=== PATIENT | male | born 1950 | race Caucasian/White ===

== ENCOUNTER 2018-04-22 05:12 | Emergency (ER) | payer MEDICARE, OTHER ==
[~2018-04-22] VITALS: Ht 188 cm; Wt 127.0 kg
[~2018-04-22 05:12] MED LIST: ALLO300T PO; CYCL10TA2 PO; HYDR-2765 PO; INDO50CA5 PO
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
[2018-04-22] MEDS ORDERED: HYDROcodone/APAP 5/325MG 1 TAB TABLET PO ONE (06:00)
[2018-04-22] MEDS ORDERED: IPRATRPIUM/ALBUTEROL 0.5/2.5MG 3 ML NEBU. NEB ONE (06:00)
--- NOTE | 2018-04-22 06:15 | RAD ---
Left lower extremity venous Doppler dated 04/22/2018. No comparison available. CLINICAL INDICATION: Left lower extremity pain and swelling. FINDINGS: Grayscale, color-flow and spectral waveform analysis performed to include the deep venous system of the left lower extremity. Normal compressibility, phasicity and augmentation of flow throughout. No filling defects are seen. IMPRESSION: No evidence of left lower extremity deep vein thrombosis. Electronically signed by: George Oliveira MD (04/22/2018 6:12 AM) [facility]
[2018-04-22 06:18] LABS: BASO # 0.1 x10^3/uL (0.0-0.2); BASO % 1 % (0-3); EOS # 0.2 x10^3/uL (0.0-0.7); EOS % 3 % (0-3); HEMATOCRIT 44.8 % (39.0-53.0); LYMPH # 1.6 x10^3/uL (1.0-4.8); LYMPH % 27 % (24-48); MEAN CORPUSCULAR HEMOGLOBIN 31 pg (25-35); MEAN CORPUSCULAR HGB CONC 34 g/dL (31-37); MEAN CORPUSCULAR VOLUME 93 fL (79-100); MONO # 0.5 x10^3/uL (0.0-1.1); MONO % 9 % (0-9); NEUT # 3.5 x10^3uL (1.8-7.7); NEUT % 60 % (31-73); PLATELET COUNT 223 x10^3/uL (140-400); RED BLOOD COUNT 4.82 x10^6/uL (4.30-5.70); RED CELL DISTRIBUTION WIDTH 15.9 % (11.5-14.5); WHITE BLOOD COUNT 5.8 x10^3/uL (4.0-11.0)
[2018-04-22 06:25] LABS: CALCIUM 8.4 mg/dL (8.5-10.1); GFR 74.8; POTASSIUM 4.3 mmol/L (3.5-5.1)
[2018-04-22 06:27] LABS: PROTHROMBIN TIME PATIENT 13.7 SEC (11.7-14.0)
[2018-04-22 06:30] LABS: ALBUMIN 3.2 g/dL (3.4-5.0); ALBUMIN/GLOBULIN RATIO 0.9 (1.0-1.7); TOTAL BILIRUBIN 0.4 mg/dL (0.2-1.0); TOTAL PROTEIN 6.7 g/dL (6.4-8.2)
--- NOTE | 2018-04-22 06:38 | RAD ---
Single view chest dated 04/22/2018. Comparison made to 11/30/2014. CLINICAL INDICATION: Shortness of breath. FINDINGS: Single upright portable exam performed. Heart and mediastinal contours are stable. Coarsened interstitial markings throughout both lungs, unchanged. The lungs are somewhat hyperinflated. There is some patchy and linear opacities at both lung bases. IMPRESSION: 1. Patchy and linear opacities at both lung bases, likely atelectasis. 2. Findings consistent with COPD. Electronically signed by: George Oliveira MD (04/22/2018 6:35 AM) [facility]
--- NOTE | 2018-04-22 06:39 | RAD ---
Three-view left knee dated 04/22/2018. No comparison available. CLINICAL INDICATION: Pain and swelling. FINDINGS: 3 views left knee show normal bony alignment. No displaced fracture. Mild to moderate tricompartmental hypertrophic change with asymmetric medial joint space narrowing. Small joint effusion. No loose body. IMPRESSION: 1. No acute radiographic abnormality. 2. 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 3. Small joint effusion. Electronically signed by: George Oliveira MD (04/22/2018 6:36 AM) [facility] [place]
[2018-04-22] MEDS ORDERED: ALBUTEROL SULFATE 2.5 MG/3 ML NEBU. NEB ONE (07:15)
[2018-04-22] MEDS ORDERED: predniSONE 10 MG TABLET PO ONE ×2 (07:30)
--- NOTE | 2018-04-22 08:25 | EKG ---
[facility] [address] [place] [address] Test Date: 2018-04-22 Test Time: 06:40:21 Pat Name: JOSÉ MIGUEL JIMENEZ Department: Room: Gender: M [employer] Person: : [id number] Requested By: SEBASTIAN GARCIA Order Number: [id number] Reading MD: Duane Stephens MD Measurements Intervals [place] Rate: 72 P: -90 TN: 146 QRS: 79 QRSD: 92 T: 66 QT: 390 QTc: 429 Interpretive Statements SR NON-SPECIFIC ST/T CHANGES Electronically Signed On 05-02-2018 21:58:15 CDT by Duane Stephens MD
[2018-04-22 08:30] VITALS: BP 119/56
[2018-04-22] MEDS ORDERED: MELO7.5T29 PO (08:39)
[2018-04-22] MEDS ORDERED: AZIT250T6 PO (08:39)
[2018-04-22] MEDS ORDERED: PRED50TA PO (08:39)
== END 2018-04-22 08:56 | disposition left against medical advice (07) ==
LOC: ER 05:12
DX: M25.562 Pain in left knee (principal); J44.1 Chronic obstructive pulmonary disease with (acute) exacerbation; F17.200 Nicotine dependence, unspecified, uncomplicated; I10 Essential (primary) hypertension; G89.29 Other chronic pain
CPT/HCPCS: 36415; 71045; 73562; 80053; 83880; 84484; 85025; 85379; 85610; 93005; 93971; 94640; 99284; J7613; J7620

== ENCOUNTER 2019-01-27 07:47 | Emergency (ER) | payer MEDICARE, OTHER ==
[~2019-01-27] VITALS: Ht 188 cm; Wt 128.4 kg
[~2019-01-27 07:47] MED LIST changes: +AZIT250T6 PO; +INDO50CA15 PO; -INDO50CA5 PO; +MELO7.5T29 PO; +PRED50TA PO
[2019-01-27 08:05] VITALS: BP 136/88
[2019-01-27] MEDS ORDERED: PRED20TA PO (08:33)
[2019-01-27] MEDS ORDERED: OXYC1TAB15 PO (08:33)
[2019-01-27] MEDS ORDERED: VALA10005 PO (08:33)
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
== END 2019-01-27 08:48 | disposition home or self-care (01) ==
LOC: ER 07:47
DX: B02.9 Zoster without complications (principal); I10 Essential (primary) hypertension; G89.29 Other chronic pain
CPT/HCPCS: 99284